=== PATIENT | female | born 1955 | race Two or more races ===

== ENCOUNTER 2018-04-03 15:23 | Emergency (ER) | payer OTHER ==
[~2018-04-03] VITALS: Ht 154.9 cm; Wt 61.7 kg
[~2018-04-03 15:23] MED LIST: ANTIVERT25 M1 PO; CLONAZEPAM0.5 MG; CLONAZEPAM1 MG PO; COMPLETE M9 MG/15 ML PO; LIPOFLAVOVIT CA1 TAB PO; OMEGA 3 500 SO1 EACH PO
[2018-04-03] MEDS ORDERED: IPRATROPIU0.2 MG/1 M (15:57)
[2018-04-03] MEDS ORDERED: VISTARIL50 MG (16:00)
[2018-04-03] MEDS ORDERED: CLONAZEPAM0.5 MG (16:00)
[2018-04-03] MEDS ORDERED: MEDROLPACK PO (20:47)
[2018-04-03] MEDS ORDERED: XOPENEX HFA15 GM IH (20:47)
[2018-04-03] MEDS ORDERED: TUSSIONEX PENN115 ML PO (20:47)
== END 2018-04-03 21:09 | disposition home or self-care (01) ==
LOC: ER 15:23
DX: J40 Bronchitis, not specified as acute or chronic (principal)

== ENCOUNTER 2022-02-02 13:20 | Emergency (ER) | payer OTHER ==
[~2022-02-02] VITALS: Ht 154.9 cm; Wt 59.9 kg
[~2022-02-02 13:20] MED LIST changes: +IPRATROPIU0.2 MG/1 M; +MEDROLPACK PO; +TUSSIONEX PENN115 ML PO; +VISTARIL50 MG; +XOPENEX HFA15 GM IH
== END 2022-02-02 14:40 | disposition left against medical advice (07) ==
LOC: ER 13:20
DX: Z53.21 Procedure and treatment not carried out due to patient leaving prior to being seen by health care provider (principal)

== ENCOUNTER 2022-04-13 10:17 | Outpatient (CLI) | payer OTHER | END 2022-04-13 11:00 | disposition home or self-care (01) | LOC: MAMO-SONO 10:17 | PROVIDERS: ATTEND Obstetrics & Gynecology | DX: Z12.31 Encounter for screening mammogram for malignant neoplasm of breast (principal); N64.4 Mastodynia; R92.0 Mammographic microcalcification found on diagnostic imaging of breast; R13.10 Dysphagia, unspecified; E07.9 Disorder of thyroid, unspecified ==

== ENCOUNTER 2022-06-16 12:08 | Outpatient (CLI) | payer OTHER | END 2022-06-16 12:19 | disposition home or self-care (01) | LOC: RAD 12:08 | PROVIDERS: ATTEND Internal Medicine Cardiovascular Disease | DX: J44.9 Chronic obstructive pulmonary disease, unspecified (principal) ==